=== PATIENT | female | born 1980 | race Caucasian/White ===

== ENCOUNTER 2018-06-08 11:02 | Emergency (ER) | payer SELFPAY ==
[2018-06-08 11:24] VITALS: BP 113/71
--- NOTE | 2018-06-08 11:24 | UC ---
UC General HPI - HPI Summary HPI Summary: 28 yo female presents c/o last 3-4 days L maxillary sinus pressure, congestion. Mild cough. Sx worse since yesterday upon returning home from [place] (via airplane). No fever /chills. No sob. No rash. No GI / sx. +L ear discomfort. No leg pain / swelling c/o's. - History of Current Complaint Stated Complaint: SINUSES,HEADACHE Time Seen by Provider: 06/08/18 11:24 Hx Obtained From: Patient Hx Last Menstrual Period: ten days ago - Allergy/Home Medications Allergies/Adverse Reactions: Allergies Allergy/AdvReac Type Severity Reaction Status Date / Time MS Naproxen [From Aleve] Allergy Intermediate Rash Verified 01/11/13 09:18 Latex, Natural Rubber Allergy Rash Verified 06/08/18 11:22 naproxen Allergy Rash Verified 06/08/18 11:22 lactase [From Dairy Aid] AdvReac GI Upset Verified 06/08/18 11:22 peanut AdvReac GI Upset Verified 06/08/18 11:22 Pork/Porcine Containing AdvReac GI Upset Verified 06/08/18 11:22 Products sweet potato AdvReac GI Upset Verified 06/08/18 11:22 wheat AdvReac GI Upset Verified 06/08/18 11:22 PMH/Surg Hx/FS Hx/Imm Hx Previously Healthy: Yes - Surgical History Surgical History: None - Family History Known Family History: Positive: None - Social History Substance Use Type: None Review of Systems All Other Systems Reviewed And Are Negative: Yes Constitutional: Positive: Negative Skin: Positive: Negative Eyes: Positive: Other - see hpi no visual c/o's ENT: Positive: Other - see hpi Respiratory: Positive: Other - see hpi Cardiovascular: Positive: Other - see hpi Gastrointestinal: Positive: Other - see hpi Motor: Positive: Negative Neurovascular: Positive: Negative Musculoskeletal: Positive: Negative Neurological: Positive: Negative - reported h/a to rn Psychological: Positive: Negative Is Patient Immunocompromised?: No Physical Exam Triage Information Reviewed: Yes Appearance: Well-Nourished - sitting up, conversing in full sentances Vital Signs Reviewed: Yes Eye Exam: Normal ENT Exam: Other - L TM barker white + light reflex R TM dull barker ENT: Positive: Pharyngeal erythema - mild post pharynx redness, no sores / exudates, uvula midline., Sinus tenderness - + L maxillary sinus tenderness Neck exam: Normal Neck: Positive: Supple, Nontender, No Lymphadenopathy Respiratory Exam: Normal Respiratory: Positive: Chest non-tender, Lungs clear, Normal breath sounds, No respiratory distress, No accessory muscle use Cardiovascular Exam: Normal Cardiovascular: Positive: RRR, No Murmur, Pulses Normal, Brisk Capillary Refill Abdominal Exam: Normal Abdomen Description: Positive: Nontender Musculoskeletal Exam: Normal Neurological Exam: Normal - grossly nonfocal Psychological Exam: Normal - conversing easily Skin Exam: Normal - no visible or reported rash. Nondiaphoretic Course/Dx - Course Course Of Treatment: Reviewed coa / tx plan. Questions as posed answered to the best of my ability. - Diagnoses Provider Diagnosis: Sinusitis, Barotrauma, otic Discharge - Sign-Out/Discharge Documenting (check all that apply): Patient Departure All imaging exams completed and their final reports reviewed: No Studies - Discharge Plan Condition: Stable Disposition: HOME Prescriptions: Azithromyxin FREDERICK (NF) [Z-[place]er[place] (Zithromax) 250 mg tabs #6] 2 tab PO .TODAY, THEN 1 DAILY #6 tab Fluconazole [Diflucan 150 MG (NF)] 150 mg PO ONCE #2 tab Patient Education Materials: Sinusitis (ED), Barotitis Media (ED) Forms: *Work Release Referrals: [facility] [Outside] No Primary Care Phys,NOPCP [Primary Care Provider] - Additional Instructions: Follow up with a primary care physician, as soon as you are able. Please seek medical attention for worse or new problems in the meantime. Afrin nasal sray as discussed, during flight before landing. Ok to use just prior to takeoff too. Drink plenty of fluids. - Billing Disposition and Condition Condition: STABLE Disposition: Home
== END 2018-06-08 11:53 | disposition home or self-care (01) ==
LOC: UCCORT 11:02
DX: J32.9 Chronic sinusitis, unspecified (principal); T70.0XXA Otitic barotrauma, initial encounter; X58.XXXA Exposure to other specified factors, initial encounter; Z88.6 Allergy status to analgesic agent
CPT/HCPCS: 99202; G0463